=== PATIENT | female | born 1975 | race Two or more races ===

== ENCOUNTER → 2018-12-20 | Outpatient (CLI) | payer OTHER | END | disposition home or self-care (01) | LOC: NUCLEAR 12-18 07:00 | DX: C07 Malignant neoplasm of parotid gland (principal) | CPT/HCPCS: 78816; A9552 ==

== ENCOUNTER 2019-11-08 10:32 | Outpatient (CLI) | payer OTHER | END 2019-11-08 12:23 | disposition home or self-care (01) | LOC: NUCLEAR 10:32 | DX: C07 Malignant neoplasm of parotid gland (principal) | CPT/HCPCS: 78815; A9552 ==